=== PATIENT | male | born 2000 | race Two or more races ===

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

== ENCOUNTER → 2020-04-28 | Outpatient (CLI) | payer MEDICAID ==
--- NOTE | 2020-04-28 12:26 | RADIOLOGY REPORT (SQ) ---
EXAM DESCRIPTION: L SPINE WHOLE IMAGES COMPLETED DATE/TIME: 04/28/2020 10:07 am REASON FOR STUDY: LUMBAR RADICULOPATHY COMPARISON: None. NUMBER OF VIEWS: Five views including obliques. TECHNIQUE: AP, lateral, oblique, and sacral radiographic images acquired of the lumbar spine. LIMITATIONS: None. FINDINGS: MINERALIZATION: Normal. SEGMENTATION: Normal. No transitional anatomy. ALIGNMENT: Mild levoscoliosis. VERTEBRAE: Maintained height. No fracture or worrisome bone lesion. Limbus vertebra at T12. DISCS: Mild disc narrowing from L3-S1. POSTERIOR ELEMENTS: Pedicles and facets are intact. No pars defect or posterior arch defects. HARDWARE: None in the spine. PARASPINAL SOFT TISSUES: Normal. PELVIS: Intact as visualized. No fractures or worrisome bone lesions. SI joints intact. OTHER: No other significant finding. IMPRESSION: Mild scoliosis. Mild disc narrowing. Limbus vertebra at T12. TECHNICAL DOCUMENTATION: JOB ID: [id number] 2010 [employer]- All Rights Reserved Reading location - IP/workstation name: [email or web address]
== END ==
LOC: RAD 09:15
PROVIDERS: ATTEND Nurse Practitioner Family
DX: M54.16 Radiculopathy, lumbar region (principal)
CPT/HCPCS: 72110